=== PATIENT | female | born 1995 | race Hispanic/Latino ===

== ENCOUNTER 2020-01-02 22:26 | Emergency (ER) | payer BC, OTHER ==
[~2020-01-02] VITALS: Ht 172.7 cm; Wt 120.2 kg
[~2020-01-02 22:26] MED LIST: AMOXICILLIN250 MG PO; CIPRO500 MG PO; CORTISPORIN-TC10 ML RIGHT EAR; MELOXICAM7.5 MG PO; NAPROXEN250 MG PO; PREDNISONE20 MG PO; ULTRAM50 MG PO; VALACYCLOVIR1000 MG
--- OUTSIDE RECORDS SUMMARY | 2020-01-02 22:28 | XMS REPORT | Summary of Care ---
Author Author Vickie Camejo M.A. Organization Unknown Address [facility] Unavailable Care Team Providers Care Otologist Name Role Phone Vickie Camejo M.A. Unavailable Unavailable REJI FENTON Unavailable Unavailable HEMALATHA MALDONADO ID, KEARA ROY Unavailable Unavailable KEARA PENNY M.D. 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 * Quantity: 30 Refills: 1 NORMA P.A., REJI * Start : 06-Dec-2019 Active Omeprazole 40 MG Oral Capsule Delayed Release TAKE ONE CAPSULE BY MOUTH EVERY DAY * Quantity: 30 Refills: 1 NORMA P.A., REJI * Start : 06-Dec-2019 Active Allergies and Adverse Reactions Name Dates Details No Known Drug Allergies (Allergy) Status: Active Past Medical History Name Dates Details History of pharyngitis (V12.69, Z87.09) Status: Resolved History of Routine history and physical examination of adult (V70.0, Z00.00) Status: Resolved History of tonsillitis (V12.69, Z87.09) Status: Resolved Procedures Procedure Dates Details Procedures not documented Immunization Name Dates Details Tdap on: 08-Apr-2009 Family History Name Dates Details Family history of Diabetes Mellitus (V18.0) Comments: Family History Status: Active Social History Name Dates Details - Status: Name Dates Details Never smoker Vital Signs Date Test Result Details No Known Vitals to report Results Date Description Value Details :39 [[facility]] TSH, 3RD GENERATION W/REFLEX TO FT4 Comments: REPORT COMMENT:AN UPDATE OR CORRECTION HAS BEEN MADE TO NAME TSH, 3RD GENERATION W/REFLEX TO FT4 0.86 {MIU/L} (Normal) Comments: Reference Range > or=20 Years 0.40-4.50 Ranges First trimester 0.26-2.66 Second trimester 0.55-2.73 Third trimester 0.43-2.91 [id number] [QL] Helicobacter pylori Breath Test RESULT: NOT DETECTED (Normal) Range: NOT DETECTED Comments: Antimicrobials, proton pump inhibitors, and bismuthpreparations are known to suppress H. pylori, and ingestion of these prior to H. pylori diagnostic testingmay lead to false negative results. If clinically indicated, the test may be repeated on a new specimenobtained two weeks after discontinuing treatment.However, a positive result is still clinically valid. [id number] [[facility]] CBC (INCLUDES DIFF/PLT) WHITE BLOOD CELL COUNT 6.5 {Thousand/u} (Normal) Range: 3.8-10.8 RED BLOOD CELL COUNT 4.85 {Million/uL} (Normal) Range: 3.80-5.10 HEMAGLOBIN 13.0 g/dl (Normal) Range: 11.7-15.5 HEMATOCRIT 40.5 % (Normal) Range: 35.0-45.0 MCV 83.5 fL (Normal) Range: 80.0-100.0 MCH 26.8 pg (Below low threshold) Range: 27.0-33.0 MCHC 32.1 g/dl (Normal) Range: 32.0-36.0 RDW 14.3 % (Normal) Range: 11.0-15.0 PLATELET COUNT 375 {Thousand/u} (Normal) Range: 140-400 MPV 10.2 fL (Normal) Range: 7.5-12.5 ABSOLUTE NEUTROPHILS 4121 {cells/uL} (Normal) Range: 9082-8379 ABSOLUTE LYMPHOCYTES 1612 {cells/uL} (Normal) Range: 850-3900 ABSOLUTE MONOCYTES 481 {cells/uL} (Normal) Range: 200-950 ABSOLUTE EOSINOPHILS 247 {cells/uL} (Normal) Range: 15-500 ABSOLUTE BASOPHILS 39 {cells/uL} (Normal) Range: 0-200 NEUTROPHILS 63.4 % (Normal) LYMPHOCYTES 24.8 % (Normal) MONOCYTES 7.4 % (Normal) EOSINOPHILS 3.8 % (Normal) BASOPHILS 0.6 % (Normal) :39 [Q] LIPID PANEL WITH REFLEX TO DIRECT LDL CHOLESTEROL, TOTAL 157 mg/dl (Normal) Range: <200 HDL CHOLESTEROL 54 mg/dl (Normal) Range: >50 TRIGLYCERIDES 53 mg/dl (Normal) Range: <150 LDL-CHOLESTEROL 89 {MG/DL__CAL} (Normal) Comments: Reference range: <100 Desirable range <100 mg/dL for primary prevention; <70 mg/dL for patients with CHD or diabetic patients with > or=2 CHD risk factors. LDL-C is now calculated using rene Ohara calculation, which is a validated novel method providing better accuracy than the Friedewald equation in the estimation of LDL-C. Cheko WU et al. TAMAR. 2013;310(19): 0382-5328 (http:/ /education.[employer]/faq/WCG879) CHOL/HDLC RATIO 2.9 {CALC} (Normal) Range: <5.0 NON HDL CHOLESTEROL 103 {MG/DL__CAL} (Normal) Range: <130 Comments: For patients with diabetes plus 1 major ASCVD risk factor, treating to a non-HDL-C goal of <100 mg/dL (LDL-C of <70 mg/dL) is considered a therapeutic option. :39 [[facility]] CMP W/EGFR GLUCOSE 94 mg/dl (Normal) Range: 65-99 Comments: Fasting reference interval UREA NITROGEN (BUN) 19 mg/dl (Normal) Range: 7-25 CREATININE 0.69 mg/dl (Normal) Range: 0.50-1.10 eGFR NON- 122 {ML/MIN/1.7} (Normal) Range: > OR=60 eGFR 141 {ML/MIN/1.7} (Normal) Range: > OR=60 BUN/CREATININE RATIO NOT APPLICABLE {CALC} Range: 6-22 SODIUM 142 mmol/L (Normal) Range: 135-146 POTASSIUM 4.7 mmol/L (Normal) Range: 3.5-5.3 CHLORIDE 106 mmol/L (Normal) Range: 98-110 CARBON DIOXIDE 28 mmol/L (Normal) Range: 20-32 CALCIUM 9.5 mg/dl (Normal) Range: 8.6-10.2 PROTEIN, TOTAL 7.3 g/dl (Normal) Range: 6.1-8.1 ALBUMIN 4.1 g/dl (Normal) Range: 3.6-5.1 GLOBULIN 3.2 {G/DL__CALC} (Normal) Range: 1.9-3.7 ALBUMIN/GLOBULIN RATIO 1.3 {CALC} (Normal) Range: 1.0-2.5 BILIRUBIN, TOTAL 0.5 mg/dl (Normal) Range: 0.2-1.2 ALKALINE PHSPHATASE 117 u/l (Above high threshold) Range: 33-115 AST 12 u/l (Normal) Range: 10-30 ALT 10 u/l (Normal) Range: 6-29 Plan of Care Name Dates Details Planned Observations Planned Goals not documented Interventions Provided Medication Changes* Terbinafine HCl - 250 MG Oral Tablet - Renew Instructions Name Dates Details Instructions not documented Encounters Appointment; REJI GREEN PJordon Encounter Diagnosis: Problem not documented On: 27-Jul-2018 11:00 Appointment; REJI GREEN P.A. Encounter Diagnosis: Problem not documented On: 16-Nov-2018 10:45 Appointment; REJI GREEN P.A. Encounter Diagnosis: Problem not documented On: 29-Oct-2019 14:00
--- NOTE | 2020-01-03 00:11 | Diagnostic Imaging Report ---
EXAMINATION: CHEST 2 VIEWS INDICATION: Shortness of breath. COMPARISON: None FINDINGS: TUBES and LINES: None. LUNGS: Lungs are well inflated. Lungs are clear. There is no evidence of pneumonia or pulmonary edema. PLEURA: No pleural effusion or pneumothorax. HEART AND MEDIASTINUM: The cardiomediastinal silhouette is unremarkable. BONES AND SOFT TISSUES: No acute osseous lesion. Mild dextroscoliosis of the thoracic spine. UPPER ABDOMEN: No free air under the diaphragm. IMPRESSION: No acute thoracic abnormality. Signed by: Dr. Geovanna Gr M.D. on 01/03/2020 12:08 AM
[2020-01-03 00:34] VITALS: BP 122/79
== END 2020-01-03 01:00 | disposition home or self-care (01) ==
LOC: ER 22:26
DX: R06.00 Dyspnea, unspecified (principal); R05 Cough; F41.1 Generalized anxiety disorder
CPT/HCPCS: 71046; 93005; 99283